=== PATIENT | female | born 1960 | race American Indian/Alaskan Native ===

== ENCOUNTER 2017-03-15 10:22 | Emergency (ER) | payer MEDICAID ==
--- NOTE | 2017-03-15 10:45 | Emergency Department Report ---
Chief Complaint: Psych Stated Complaint: MH Time Seen by Provider: 03/15/17 10:43 - HPI History of Present Illness: PT states she has been stressed x 2 years. pt states she is now overwhelmed - ROS Review of Systems: - si + muscle spasms in back - Exam Vital Signs: Vital Signs 03/15/17 10:36 Temperature 98.7 F Pulse Rate 96 H Respiratory 18 Rate Blood Pressure 156/94 O2 Sat by Pulse 99 Oximetry Physical Exam: pt looks well, non toxic. gcs 15 MSE screening note: Focused history and physical exam performed. Due to findings the following was ordered: labs ED Disposition for MSE Condition: Stable
[2017-03-15 11:05] LABS: Basophils % (Auto) 0.8 % (0.0-1.8); Hematocrit 35.7 % (30.3-42.9); Hemoglobin 12.4 gm/dl (10.1-14.3); Mean Corpuscular HGB Conc 35 % (30-34); Mean Corpuscular Hemoglobin 33 pg (28-32); Mean Corpuscular Volume 94 fl (79-97); Platelet Count 263 K/mm3 (140-440); Red Blood Count 3.78 M/mm3 (3.65-5.03); White Blood Count 7.5 K/mm3 (4.5-11.0)
[2017-03-15 11:20] LABS: Anion Gap 18 mmol/L; BUN/Creatinine Ratio 16.66; Blood Urea Nitrogen 15 mg/dL (7-17); Calcium 9.2 mg/dL (8.4-10.2); Carbon Dioxide 24 mmol/L (22-30); Chloride 102.4 mmol/L (98-107); Glucose 131 mg/dL (65-100); Potassium 3.8 mmol/L (3.6-5.0); Sodium 141 mmol/L (137-145)
[2017-03-15 12:09] LABS: Urine Drugs of Abuse Note Disclamer
[2017-03-15 12:25] LABS: Bilirubin,Urine NEG (Negative); Blood,Urine NEG (Negative); Ketones,Urine NEG (Negative); Leukocyte Esterase,Urine TR (Negative); Mucus,Urine FEW /HPF; Nitrite,Urine NEG (Negative); Protein,Urine <15 mg/dL mg/dL (Negative); Urobilinogen,Urine < 2.0 mg/dL (<2.0)
[2017-03-15 12:32] VITALS: BP 115/74
--- NOTE | 2017-03-15 23:39 | ED Elopement Review ---
ED Pt Elopement review - Results review Lab results: Laboratory Tests 03/15/17 03/15/17 03/15/17 10:53 10:53 10:53 WBC RBC Hgb Hct MCV MCH MCHC RDW Plt Count Lymph % (Auto) [place] % (Auto) Eos % (Auto) Baso % (Auto) Lymph # [place] # Eos # Baso # Seg Neutrophils % Seg Neutrophils # Sodium 141 Potassium 3.8 Chloride 102.4 Carbon Dioxide 24 Anion Gap 18 BUN 15 Creatinine 0.9 Estimated GFR > 60 BUN/Creatinine Ratio 16.66 Glucose 131 H Calcium 9.2 Urine Color Yellow Urine Turbidity Clear Urine pH 6.0 Ur Specific [place] 1.018 Urine Protein <15 mg/dl Urine Glucose (UA) Neg Urine Ketones Neg Urine Blood Neg Urine Nitrite Neg Urine Bilirubin Neg Urine Urobilinogen < 2.0 Ur Leukocyte Esterase Tr Urine WBC (Auto) 3.0 Urine RBC (Auto) 3.0 U Epithel Cells (Auto) 5.0 Urine Mucus Few Urine Opiates Screen Presumptive positive Urine Methadone Screen Presumptive negative Ur Barbiturates Screen Presumptive negative Ur Phencyclidine Scrn Presumptive negative Ur Amphetamines Screen Presumptive negative U Benzodiazepines Scrn Presumptive negative Urine Cocaine Screen Presumptive negative U Marijuana (THC) Screen Presumptive negative Drugs of Abuse Note Disclamer Plasma/Serum Alcohol 03/15/17 03/15/17 10:53 10:53 WBC 7.5 RBC 3.78 Hgb 12.4 Hct 35.7 MCV 94 MCH 33 H MCHC 35 H RDW 14.0 Plt Count 263 Lymph % (Auto) 28.2 [place] % (Auto) 5.6 Eos % (Auto) 2.0 Baso % (Auto) 0.8 Lymph # 2.1 [place] # 0.4 Eos # 0.2 Baso # 0.1 Seg Neutrophils % 63.4 Seg Neutrophils # 4.8 Sodium Potassium Chloride Carbon Dioxide Anion Gap BUN Creatinine Estimated GFR BUN/Creatinine Ratio Glucose Calcium Urine Color Urine Turbidity Urine pH Ur Specific [place] Urine Protein Urine Glucose (UA) Urine Ketones Urine Blood Urine Nitrite Urine Bilirubin Urine Urobilinogen Ur Leukocyte Esterase Urine WBC (Auto) Urine RBC (Auto) U Epithel Cells (Auto) Urine Mucus Urine Opiates Screen Urine Methadone Screen Ur Barbiturates Screen Ur Phencyclidine Scrn Ur Amphetamines Screen U Benzodiazepines Scrn Urine Cocaine Screen U Marijuana (THC) Screen Drugs of Abuse Note Plasma/Serum Alcohol < 0.01 - Call Back decision Pt Call Back Decision: Pt to F/U with PMD
== END 2017-03-15 14:10 | disposition left against medical advice (07) ==
LOC: ED 10:22
DX: F43.9 Reaction to severe stress, unspecified (principal); M62.838 Other muscle spasm; Z53.21 Procedure and treatment not carried out due to patient leaving prior to being seen by health care provider
CPT/HCPCS: 36415; 80048; 80307; 81001; 85025; G0480; 80320